=== PATIENT | female | born 1960 | race Caucasian/White ===

== ENCOUNTER 2017-04-09 14:07 | Emergency (ER) | payer SELFPAY ==
[~2017-04-09] VITALS: Ht 154.9 cm; Wt 114.0 kg
[~2017-04-09 14:07] MED LIST: BUSCAPINA PO; OMEP20EC6 PO
[2017-04-09 14:15] VITALS: BP 153/77
--- NOTE | 2017-04-09 14:15 | NUR ---
PATIENT PRESENTS TO ED WITH C/O COUGH . PT STATES SHE HAS BEEN HAVING PRODUTIVE COUGH AND SORE THROAT FOR 5 DAYS . DENIES N/V/D; SKIN IS PINK/WARM/DRY; AAOX4 WITH EVEN AND STEADY GAIT; LUNGS CLEAR BL; HR EVEN AND REGULAR; PT DENIES ANY FEVER, CP, SOB, AT THIS TIME; PATIENT STATES PAIN OF 10/10 AT THIS TIME; VSS; PATIENT POSITIONED FOR COMFORT; HOB ELEVATED; BEDRAILS UP X2; BED DOWN. ER MD MADE AWARE OF PT STATUS.
--- NOTE | 2017-04-09 14:21 | NUR ---
Pateint to bed 12.
[2017-04-09] MEDS ORDERED: KETOROLAC 30 MG/ML VIAL IM ONE (15:00)
[2017-04-09 15:45] VITALS: BP 131/71
== END 2017-04-09 15:45 | disposition home or self-care (01) ==
LOC: MED 14:07
DX: S00.83XA Contusion of other part of head, initial encounter (principal); J06.9 Acute upper respiratory infection, unspecified; K21.9 Gastro-esophageal reflux disease without esophagitis; Z90.89 Acquired absence of other organs; Z88.0 Allergy status to penicillin; W22.03XA Walked into furniture, initial encounter; Y93.89 Activity, other specified; Y92.89 Other specified places as the place of occurrence of the external cause; Y99.8 Other external cause status
CPT/HCPCS: 71010; 96372; 99283; J1885; Q0092

== ENCOUNTER 2019-11-05 11:28 | Emergency (ER) | payer SELFPAY ==
[~2019-11-05] VITALS: Ht 149.9 cm; Wt 111.6 kg
[~2019-11-05 11:28] MED LIST changes: -OMEP20EC6 PO; +OMEP20EC9 PO
[2019-11-05 11:34] VITALS: BP 137/74
--- NOTE | 2019-11-05 12:20 | NUR ---
PT AMBULATED TO ER BED 04
--- NOTE | 2019-11-05 12:29 | NUR ---
COVERING PRIMARY RN FOR LUNCH RECEVIED A 59/F FROM TRIAGE WITH C/O GENERALIZED WEAKNESS AND LETHARGY. REPORTS NAUSEA BUT NO VOMITTING. AMBULATORY WITH ASSITANCE TO [facility] DUE TO DIZZINESS. IN BED FOR MSE.
--- NOTE | 2019-11-05 12:44 | NUR ---
JOSAFAT RALPH AT BEDSIDE.
[2019-11-05 13:16] VITALS: BP 137/74
--- NOTE | 2019-11-05 13:16 | NUR ---
Patient discharged with v/s stable. Written and verbal after care instructions given and explained. Patient alert, oriented and verbalized understanding of instructions. Ambulatory with steady gait. All questions addressed prior to discharge. ID band removed. Patient advised to follow up with PMD. Rx of ZOFRAN AND MOTRIN given. Patient educated on indication of medication including possible reaction and side effects. Opportunity to ask questions provided and answered.
== END 2019-11-05 13:16 | disposition home or self-care (01) ==
LOC: EDUNIT# 11:28 → MED 11:28
DX: R53.1 Weakness (principal); R11.0 Nausea; R07.9 Chest pain, unspecified
CPT/HCPCS: 81002; 81025; 99283